=== PATIENT | female | born 1955 | race Caucasian/White ===

== ENCOUNTER 2021-09-15 11:54 | Emergency (ER) | payer MEDICARE ==
[~2021-09-15] VITALS: Ht 167.6 cm; Wt 70.5 kg
[~2021-09-15 11:54] MED LIST: NORCO 325 MG-51 TAB PO; VALIUM 5MG T5 MG/TAB PO
[2021-09-15 12:03] VITALS: TEMP 98.1
[2021-09-15 12:29] LABS: BASO % 0.1 % (0.0-2.0); GRAN # 5.4 K/mm3 (1.4-6.5); HEMATOCRIT 40.2 % (37.0-47.0); HEMOGLOBIN 13.2 g/dl (12.5-16.0); LYMPH # 1.6 K/mm3 (1.2-3.4); LYMPH % 20.8 % (20.0-51.0); MEAN CELL VOLUME 91 fl (80.0-100.0); MEAN CORPUSCULAR HEMOGLOBIN 30 pg (27-31); MEAN CORPUSCULAR HGB CONC 33 g/dl (33.0-37.0); MEAN PLATELET VOLUME 9.4 fl (7.4-10.4); MONO # 0.5 K/mm3 (0.1-0.6); MONO % 6.8 % (1.7-9.3); PLATELET COUNT 297 K/mm3 (130-400); REDCELL DISTRIBUTION WIDTH-CV 12.7 % (11.5-14.5)
[2021-09-15 12:50] LABS: ALBUMIN 4.3 gm/dL (3.4-4.8); BILIRUBIN,TOTAL 0.3 mg/dL (0.2-1.2); CALCIUM 9.5 mg/dL (8.4-10.2); CREATININE, serum 0.96 mg/dL (0.57-1.11); POTASSIUM 4.4 mmol/L (3.5-4.5); TOTAL PROTEIN 7.7 gm/dL (6.2-8.1)
[2021-09-15 14:12] VITALS: BP 155/91; PULSE 99
[2021-09-15] MEDS ORDERED: BONINE25 MG PO (14:29)
== END 2021-09-15 14:41 ==
LOC: COL.ER
PROVIDERS: Student in an Organized Health Care Education/Training Program
DX: R42 Dizziness and giddiness (principal); F31.9 Bipolar disorder, unspecified
CPT/HCPCS: Q9967

== ENCOUNTER 2024-03-26 14:54 | Emergency (ER) | payer MEDICARE ==
[~2024-03-26] VITALS: Ht 167.6 cm; Wt 88.6 kg
[~2024-03-26 14:54] MED LIST changes: +BONINE25 MG PO
[2024-03-26 15:03] VITALS: TEMP 98.1
[2024-03-26] MEDS ORDERED: Losartan 50 MG TAB PO ONE (17:15)
[2024-03-26] MEDS ORDERED: COZAAR100 MG PO (17:20)
[2024-03-26 17:34] VITALS: BP 183/105; PULSE 90
== END 2024-03-26 17:37 | disposition home or self-care (01) ==
LOC: COL.ER 14:54
DX: I10 Essential (primary) hypertension (principal); Z79.899 Other long term (current) drug therapy